=== PATIENT | female | born 1960 | race Caucasian/White ===

== ENCOUNTER → 2016-05-25 | Outpatient (CLI) | payer BC, OTHER | LOC: RAD 04:47 | DX: Z12.31 Encounter for screening mammogram for malignant neoplasm of breast (principal) ==

== ENCOUNTER → 2017-11-19 | Outpatient (CLI) | payer BC, OTHER | LOC: RAD 03:10 | DX: Z12.31 Encounter for screening mammogram for malignant neoplasm of breast (principal) ==

== ENCOUNTER → 2018-12-22 | Outpatient (CLI) | payer BC, OTHER | LOC: BC 08:54 | DX: Z12.31 Encounter for screening mammogram for malignant neoplasm of breast (principal) ==

== ENCOUNTER → 2020-01-11 | Outpatient (CLI) | payer BC, OTHER | LOC: BC 10:47 | PROVIDERS: ATTEND Obstetrics & Gynecology | DX: Z12.31 Encounter for screening mammogram for malignant neoplasm of breast (principal) ==

== ENCOUNTER → 2021-01-24 | Outpatient (CLI) | payer BC | LOC: BC 15:40 | PROVIDERS: ATTEND Obstetrics & Gynecology | DX: Z12.31 Encounter for screening mammogram for malignant neoplasm of breast (principal); N64.89 Other specified disorders of breast ==